=== PATIENT | female | born 1980 | race Caucasian/White ===

== ENCOUNTER 2022-11-21 09:16 | Outpatient (CLI) | payer OTHER, SELFPAY ==
--- NOTE | 2022-12-10 16:16 | WPDHOMESLEEP ---
Sleep Study - Home Unattended Date of Study: 11/21/22 Ordering Provider: Maru Barajas NP Interpreting Provider: Brigette Aguilar, DO Home Sleep Study Type: Watch PAT Height: 1.6 m Weight: 77.111 kg Body Mass Index: 30.1 Neck Circumference (inches): 13.5 [place]: 8 Reason for Sleep Study Unrefreshing sleep, daytime hypersomnia Sleep History The patient is a 42-year-old female with hypertension, depression and asthma that had a sleep study ordered by her primary care for evaluation of sleep apnea. The patient occasionally awakens from sleep short of breath. She rarely awakens at night with heartburn, belching or cough. She frequently snores and is occasionally loud enough that others complain. She occasionally has trouble sleeping when she has a cold. She occasionally wakes up gasping for air throughout the night. She frequently has breathing problems at night observed by herself or others. She occasionally sweats excessively at night. She frequently has heart palpitations or irregular heartbeats during the night. She occasionally falls asleep during the day but never while driving. She denies sleep paralysis and cataplexy. She occasionally has trouble at school or work due to sleepiness. She occasionally experiences vivid dreamlike scenes upon awakening or falling asleep. She denies feeling afraid of going to sleep. He rarely has nightmares. She frequently remembers her dreams. She constantly has thoughts racing through her mind. She frequently feels sad, depressed and anxious. She denies having muscular tension. She occasionally notices parts of her body jerk. She rarely kicks during the night. She denies having crawling and aching feelings in her legs and denies having leg pain during the night. She denies grinding her teeth during sleep and denies awakening with morning jaw pain. She is rarely bothered by pain during the day and never awakened by pain during the night. She denies waking up feeling stiff in the morning. She denies waking up with sore or achy muscles. She rarely wakes up with pain in the neck, spine or other joints. He goes to bed between midnight to 1:00 a.m. on both weekdays and weekends. It takes her 10-15 minutes to fall asleep. She wakes up 1-2 times throughout the night for unknown reasons. When she awakens, she will lay in bed, listening to music and read on her phone. It takes her 5-30 minutes to fall asleep. She wakes up between 7-7:30 a.m. on weekdays and between 9-10 a.m. on the weekends. She typically gets 6-8 hours of sleep per night. She will stay in bed for 30 minutes after waking up in the morning. She currently lives with her and 2 children. He does not consume any caffeinated beverages within 2 hours of bedtime. She does not engage in physical exercise before bedtime. He will occasionally read and watch television before falling asleep. She will take naps in the afternoon or the evening but they are not refreshing. She denies consuming caffeinated beverages throughout the day. She denies tobacco, alcohol and recreational drug use. [facility] Social History Social History Smoking status: Unknown if ever smoked Alcohol intake: current Alcohol use details: rum Lack of Transportation: No Lack of Food: Never True Current Housing: I Have Housing Concerned About Future Housing: No Difficulty Paying Gas/Electric Bills: No Difficulty Paying for Meds: No Currently Unemployed: No Education: Associate Degree Difficulty w/ Childcare or Family Care: No Medications Home Medications Medication Instructions Recorded Confirmed Type Bacillus coagulans 2 billion tablet PO 10/10/22 10/10/22 History cell-vitamin D3 5 mcg chewable tablet (Probiotic (with Vitamin D3)) lisinopril 10 mg tablet 10 mg PO DAILY #30 tabs 10/10/22 10/10/22 Rx zpkpxwuhtelu-Zw-fogf-minerals tablet PO 10/10/22 05
[2022-12-10 16:26] VITALS: BMI 30.1
--- NOTE | 2022-12-12 13:48 | SLEEP ---
pt rcd result
== END 2022-11-22 13:02 | disposition home or self-care (01) ==
LOC: ANHCSM 09:18
PROVIDERS: PCP Internal Medicine; Visit Provider Nurse Practitioner
DX: G47.9 Sleep disorder, unspecified (principal); R53.83 Other fatigue; R40.0 Somnolence
CPT/HCPCS: 95800

== ENCOUNTER 2022-12-18 08:16 | Outpatient (CLI) | payer OTHER, SELFPAY ==
--- NOTE | 2023-01-04 20:10 | WPDSLEEPSTUD ---
Sleep Study Date of Study: 12/18/22 Ordering Provider: Maru Barajas NP Interpreting Physician: Carmela Rowan MD Sleep Study Type: Polysomnogram Height: 1.6 m Weight: 77.111 kg Body Mass Index: 30.1 Neck Circumference (inches): 14 [place]: 8 Reason for Sleep Study Daytime hypersomnia, nighttime awakenings * 11/21/22 ? Home Sleep Test ? Overall AHI 4.7 with desaturation to 83%. Due to the severity of patient?s symptoms, an in-lab split study was recommended. Sleep History Lovely George is a 42-year-old female with history of hypertension, depression, and asthma who presented to the sleep lab for a sleep study for evaluation of nighttime awakenings and daytime hypersomnia. She rarely awakens from sleep short of breath. She never awakens at night with heartburn, belching or cough.? She frequently snores. She never snores loudly enough that others complain. She rarely has trouble sleeping when she has a cold. She rarely suddenly wakes up gasping for breath during the night. She never has breathing problems at night. She occasionally sweats excessively at night. She frequently notices her heart pounding or beating irregularly during the night. She frequently falls asleep during the day. She never falls asleep involuntarily and never falls asleep while driving. She never experiences loss of muscle tone with strong emotion. She never feels paralyzed on waking or falling asleep. She never experiences vivid dreams upon waking or falling asleep. She does not feel afraid of going to sleep. She rarely has nightmares. She occasionally recalls her dreams. She constantly has thoughts racing through her mind. She constantly feels sad or depressed. She constantly feels anxiety or worry about things. She does not have muscular tension. She rarely notices parts of her body jerk. She never kicks during the night. She never feels crawling or aching feelings in her legs. She never feels leg pain at night. She never grinds her teeth during sleep or has morning jaw pain. She occasionally feels bothered by pain during the day but never awakened by pain during the night. She rarely wakes up with pain in her neck, spine, or joints. Normal bedtime is between midnight and 1am on the and same on the weekends, taking 10 to 15 minutes to fall asleep. She typically gets about 6 to 7 hours of sleep per night. Her wake up time is between 7am to 7:30am on the weekdays and between 8am to 10am on the weekends. She typically wakes up around 2 to 4 times per night, awake for around 1 to 2 minutes, and she will turn music on, stay in bed, meditate. Habits:? Never tobacco smoker. No caffeine use. No alcohol or recreational substances. [facility] Past Medical History Medical History (Updated 01/04/23 @ 20:17 by Carmela Rowan MD) Depression with anxiety Hypertension Social History Social History Smoking status: Unknown if ever smoked Alcohol intake: current Alcohol use details: rum Lack of Transportation: No Lack of Food: Never True Current Housing: I Have Housing Concerned About Future Housing: No Difficulty Paying Gas/Electric Bills: No Difficulty Paying for Meds: No Currently Unemployed: No Education: Associate Degree Difficulty w/ Childcare or Family Care: No Medications Home Medications Medication Instructions Recorded Confirmed Type Bacillus coagulans 2 billion tablet PO 10/10/22 10/10/22 History cell-vitamin D3 5 mcg chewable tablet (Probiotic (with Vitamin D3)) heqorvkywwcy-Nv-csyd-minerals tablet PO 10/10/22 10/10/22 History norgestimate 0.25 mg-ethinyl 1 tablet PO DAILY 10/10/22 10/10/22 History estradiol 35 mcg tablet ([place]) lisinopril 10 mg tablet 10 mg PO DAILY #30 tabs 01/01/23 Rx sertraline 25 mg tablet 25 mg PO DAILY #30 tabs 01/01/23 Rx Sleep Procedure This test was performed using the vzaar multiple channel [employer]
[2023-01-04 20:21] VITALS: BMI 30.1
== END 2022-12-19 07:01 | disposition home or self-care (01) ==
LOC: ANHCSM 08:17
PROVIDERS: PCP Internal Medicine; Visit Provider Nurse Practitioner
DX: G47.9 Sleep disorder, unspecified (principal); R40.0 Somnolence; G47.61 Periodic limb movement disorder
CPT/HCPCS: 95810

== ENCOUNTER → 2022-12-27 12:24 | Outpatient (CLI) | payer OTHER, SELFPAY ==
--- NOTE | ~2022-12-27 | MM_ITS ---
EXAMINATION: MM screening cedric BI w linda HISTORY: Screening mammogram TECHNIQUE: Craniocaudal and mediolateral oblique 3-D tomosynthesis images were obtained and synthetic 2-D images were generated. CAD analysis was submitted and interpreted. COMPARISON: No prior mammogram is available for comparison at this institution. BREAST PARENCHYMAL COMPOSITION: The breasts are heterogeneously dense, which may obscure small masses . FINDINGS: No suspicious mass, calcification, or architectural distortion are identified in either jack ast to suggest malignancy. IMPRESSION: 1. No mammographic evidence of malignancy. 2. Recommend routine screening mammography in one year. BI-RADS Category 1: Negative Reviewed, dictated and finalized at location A.
== END ==
PROVIDERS: PCP Nurse Practitioner; Visit Provider Nurse Practitioner
DX: Z12.31 Encounter for screening mammogram for malignant neoplasm of breast (principal)
CPT/HCPCS: 77063; 77067